=== PATIENT | female | born 1940 | race Caucasian/White ===

== ENCOUNTER 2019-08-30 10:39 | Outpatient (CLI) | payer MEDICARE ==
[2019-08-30] MEDS ORDERED: OMNIPAQUE 350 MG/ML, 100ML BOTTLE ONE (12:34)
== END 2019-08-30 23:59 | disposition home or self-care (01) ==
LOC: RAD 10:39
PROVIDERS: ATTEND Internal Medicine
DX: K22.8 Other specified diseases of esophagus (principal); M51.37 Other intervertebral disc degeneration, lumbosacral region; M41.86 Other forms of scoliosis, lumbar region; M47.816 Spondylosis without myelopathy or radiculopathy, lumbar region; M47.817 Spondylosis without myelopathy or radiculopathy, lumbosacral region
CPT/HCPCS: 74177; 74220; Q9967

== ENCOUNTER 2021-01-02 08:15 | Outpatient (CLI) | payer MEDICARE | END 2021-01-02 23:59 | disposition home or self-care (01) | LOC: CFH 08:15 | PROVIDERS: ATTEND Internal Medicine | DX: N64.9 Disorder of breast, unspecified (principal) | CPT/HCPCS: 76642; 77065 ==

== ENCOUNTER → 2021-07-22 | Outpatient (CLI) | payer MEDICARE | END | disposition home or self-care (01) | LOC: CFH 13:26 | PROVIDERS: ATTEND Internal Medicine | DX: R92.8 Other abnormal and inconclusive findings on diagnostic imaging of breast (principal); N64.9 Disorder of breast, unspecified ==